=== PATIENT | female | born 1985 | race Caucasian/White ===

== ENCOUNTER → 2019-08-11 21:00 | Observation (INO) ==
[2019-08-11 16:31] LABS: Basophils % 0.3 %; Eosinophils % 0.2 %; Hematocrit 37.8 % (35.3-44.9); Hemoglobin 13.6 g/dL (11.5-15.4); Immature Granulocytes % 0.6 % (0-4); Lymphocytes # 2.2 K/mcL (0.6-4.6); Lymphocytes % 22.4 %; Mean Corpuscular Hemoglobin 32.2 pg (28.0-33.3); Mean Corpuscular Volume 89.4 fL (83.0-100.0); Mean Platelet Volume 10.4 fL (9.4-12.4); Monocytes # 0.6 K/mcL (0.0-1.3); Monocytes % 6.4 %; Platelet Count 240 K/mcL (140-400); Red Blood Count 4.23 M/mcL (3.82-4.97); Red Cell Distribution Width 12.1 % (11.5-14.5); Segmented Neutrophils % 70.1 %; White Blood Count 9.9 K/mcL (4.3-11.1)
[2019-08-11 16:35] LABS: Bilirubin,Urine Negative (Negative); Blood,Urine Trace (Negative); Clarity,Urine Clear (Clear); Color,Urine Yellow (Yellow); Glucose,Urine (UA) Normal (Normal); Ketones,Urine Negative (Negative); Leukocyte Esterase,Urine Trace (Negative); Nitrite,Urine Negative (Negative); PH,Urine 6.5 pH Units (5.0-8.0); Protein,Urine >=300 mg/dL (Neg-Trace); Specific Gravity,Urine 1.018 (1.010-1.025); Urobilinogen,Urine Normal (Normal)
[2019-08-11 16:38] LABS: Bacteria,Urine Few per hpf (None-Few); Hyaline Casts,Urine None Seen per lpf (None-Few); RBC,Urine 0-3 per hpf (0-3); Squamous Epithelial Cell,Urine Many per lpf (None-Few)
[2019-08-11 16:47] LABS: Amphetamine Screen,Urine Negative ng/mL (Cutoff=1000); Barbiturate Screen,Urine Negative ng/mL (Cutoff=200); Benzodiazepines Screen,Urine Negative ng/mL (Cutoff=200); Cannabinoid Screen,Urine Negative ng/mL (Cutoff = 50); Cocaine Screen,Urine Negative ng/mL (Cutoff= 300); Opiate Screen,Urine Negative ng/mL (Cutoff=300); Phencyclidine Screen,Urine Negative ng/mL (Cutoff=25)
[2019-08-11 16:53] LABS: Alanine Aminotransferase 26 Units/L (7-52); Aspartate Amino Transferase 32 Units/L (13-39); BUN/Creatinine Ratio 14 (6-26); Blood Urea Nitrogen 11 mg/dL (6-20); Lactate Dehydrogenase 231 Units/L (140-271); Uric Acid 7.8 mg/dL (2.3-7.6); eGFR For African Americans > 60 (> 60); eGFR For Non-African Americans > 60 (> 60)
[2019-08-11 17:00] LABS: Protein/Creatinine Ratio,Urine 4.28 mg/mg (0.00-0.20)
[2019-08-11 20:23] VITALS: BP 147/92
[~2019-08-11 21:00] MED LIST: *HR* Labetalol 20 MG/4 ML SYRINGE IVP ONE; Acetaminophen 325 MG TABLET PO ONE; Betamethasone Acet/SodPhos 30 MG/5 ML VIAL IM SCH; Calcium Gluconate 1,000 MG/10 ML VIAL IVPB PRN; Magnesium Sulf 20gm/LR 500mL 20 GM/500 ML IV.SOLN IVC SCH; NIFEdipine 10 MG CAPSULE PO ONE; Ringers Solution, Lactated 1,000 ML ONE
== END | disposition other institution (70) ==
LOC: 1NENULAB
PROVIDERS: ADMIT Registered Nurse; ATTEND Registered Nurse